=== PATIENT | male | born 1990 | race Caucasian/White ===

== ENCOUNTER 2017-07-22 06:58 | Emergency (ER) | payer SELFPAY ==
[2017-07-22 07:09] VITALS: BP 139/83
[2017-07-22] MEDS ORDERED: Ondansetron 4 MG/2 ML SDV IVPUSH ONE (07:12)
--- NOTE | 2017-07-22 07:16 | EDM.PDOC ---
ED HPI GENERAL MEDICAL PROBLEM - General Chief Complaint: Behavioral/Psych Stated Complaint: MEDICATION OD Time Seen by Provider: 07/22/17 07:16 Source of Information: Reports: Patient - History of Present Illness INITIAL COMMENTS - FREE TEXT/NARRATIVE: HISTORY AND PHYSICAL: History of present illness: [Patient presents with suicide attempt last night He had locked himself in the garage between 11 PM and 1 AM with a vehicle running, 9 hours later carboxyhemoglobin level is 13, at approximately 1 AM he took a mix of aspirin and Tylenol approximately 30 tablets levels are nontoxic at this time 9 hours later Patient is in no distress, denies history of depression or chronic medications illness or disease denies smoking alcohol or illicit drug use No prior suicidal ideation or attempt No fever nausea vomiting chills sweats no chest pain shortness breath headache dizziness palpitation no bowel or urine symptoms] Review of systems: As per history of present illness and below otherwise all systems reviewed and negative. Past medical history: As per history of present illness and as reviewed below otherwise noncontributory. Surgical history: As per history of present illness and as reviewed below otherwise noncontributory. Social history: No reported history of drug or alcohol abuse. Family history: As per history of present illness and as reviewed below otherwise noncontributory. Physical exam: HEENT: Atraumatic, normocephalic, pupils reactive, negative for conjunctival pallor or scleral icterus, mucous membranes moist, throat clear, neck supple, nontender, trachea midline. Lungs: Clear to auscultation, breath sounds equal bilaterally, chest nontender. Heart: S1S2, regular, negative for clicks, rubs, or JVD. Abdomen: Soft, nondistended, nontender. Negative for masses or hepatosplenomegaly. Negative for costovertebral tenderness. Pelvis: Stable nontender. Genitourinary: Deferred. Rectal: Deferred. Extremities: Atraumatic, negative for cords or calf pain. Neurovascular unremarkable. Neuro: Awake, alert, oriented. Cranial nerves II through XII unremarkable. Cerebellum unremarkable. Motor and sensory unremarkable throughout. Exam nonfocal. Diagnostics: [CBC CMP UA drug screen aspirin Tylenol and alcohol levels EKG ] Therapeutics: [Oxygen] Impression: [Suicide attempt] Definitive disposition and diagnosis as appropriate pending reevaluation and review of above. Headache Pain Score (Numeric/FACES): 7 - Related Data Allergies Allergy/AdvReac Type Severity Reaction Status Date / Time No Known Allergies Allergy Verified 07/22/17 07:09 Home Meds: Home Meds . [No Known Home Meds] 03/26/15 [History] Past Medical History - Past Health History Medical/Surgical History: Denies Medical/Surgical History Social & Family History - Family History Family Medical History: Noncontributory ED ROS GENERAL - Review of Systems Review Of Systems: See Below ED EXAM, GENERAL - Physical Exam Exam: See Below Course - Vital Signs Last Recorded V/S: Last Vital Signs Temp 98.6 F 07/22/17 07:06 Pulse 99 07/22/17 07:06 Resp 18 07/22/17 07:06 BP 139/83 07/22/17 07:06 Pulse Ox 96 07/22/17 07:06 - Orders/Labs/Meds Orders: Active Orders 24 hr Category Date Time Status EKG Documentation Completion [RC] STAT Care 07/22/17 07:05 Active DRUG SCREEN, URINE [URCHEM] Stat Lab 07/22/17 07:05 Ordered INR,PT,PROTHROMBIN TIME [COAG] Stat Lab 07/22/17 08:29 Ordered UA W/MICROSCOPIC [URIN] Stat Lab 07/22/17 07:05 Ordered Labs: Laboratory Tests 07/22/17 07/22/17 07/22/17 Range/Units 07:16 07:16 07:16 WBC 12.43 H (4.0-11.0) K/uL RBC 5.45 (4.50-5.90) M/uL Hgb 16.8 (13.0-17.0) g/dL Hct 45.5 (38.0-50.0) % MCV 83.5 (80.0-98.0) fL MCH 30.8 (27.0-32.0) pg MCHC 36.9 (31.0-37.0) g/dL RDW Std Deviation 39.4 (28.0-62.0) fl RDW Coeff of Ariella 13 (11.0-15.0) % Plt Count 252 (150-400) K/uL MPV 10.40 (7.40-12.00) fL Neut % (Auto) 82.5 H (48.0-80.0) % Lymph % (Auto) 11.1 L (16.0-40.0) % [place] % (Auto) 6.2 (0.0-15.0) % Eos % (Auto) 0.0 (0.0-7.0) % Baso % (Auto) 0.2 (0.0-1.5) % Neut # (Auto) 10.3 H (1.4-5.7) K/uL Lymph # (Auto) 1.4 (0.6-2.4) K/uL [place] # (Auto) 0.8 (0.0-0.8) K/uL Eos # (Auto) 0.0 (0.0-0.7) K/uL Baso # (Auto) 0.0 (0.0-0.1) K/uL Nucleated RBC % 0.0 /100WBC Nucleated RBCs # 0 K/uL ABG Carboxyhemoglobin 13.1 (0-15) % Sodium 141 (136-148) mmol/L Potassium 3.7 (3.5-5.1) mmol/L Chloride 103 (98-107) mmol/L Carbon Dioxide 22.5 (21.0-32.0) mmol/L BUN 13 (7.0-18.0) mg/dL Creatinine 1.4 H (0.8-1.3) mg/dL Est Cr Clr Drug Dosing 81.84 mL/min Estimated GFR (MDRD) > 60.0 ml/min Glucose 147 H (74-106) mg/dL Calcium 9.4 (8.5-10.1) mg/dL Magnesium 1.9 (1.8-2.4) mg/dL Total Bilirubin 0.4 (0.2-1.0) mg/dL AST 22 (15-37) IU/L ALT 24 (14-63) IU/L Alkaline Phosphatase 65 (46-116) U/L Total Protein 8.2 (6.4-8.2) g/dL Albumin 4.5 (3.4-5.0) g/dL Globulin 3.7 H (2.0-3.5) g/dL Albumin/Globulin Ratio 1.2 L (1.3-2.8) TSH 3rd Generation 1.41 (0.36-3.74) uIU/mL Salicylates 24.9 H (0-20) mg/dL Acetaminophen 21.8 ug/mL Ethyl Alcohol < 3.0 mg/dL Meds: Medications Discontinued Medications Generic Name Dose Route Start Last Admin Trade Name Ki PRN Reason Stop Dose Admin Ondansetron HCl 8 mg 07/22/17 07:12 07/22/17 07:21 Zofran IVPUSH 07/22/17 07:13 8 mg ONETIME ONE Administration Departure - Departure Time of Disposition: 08:45 Disposition: DC/Tfer to Other 70 Condition: Fair Clinical Impression: Suicide attempt - Discharge Information Referrals: Ernie Meng MD [Primary Care Provider] - Forms: ED Department Discharge - My Orders Last 24 Hours: My Active Orders 07/22/17 08:29 INR,PT,PROTHROMBIN TIME [COAG] Stat - Assessment/Plan Last 24 Hours: My Active Orders 07/22/17 08:29 INR,PT,PROTHROMBIN TIME [COAG] Stat
[2017-07-22 08:03] LABS: CHLORIDE,CL 103 mmol/L (98-107); SODIUM,NA 141 mmol/L (136-148)
[2017-07-22 08:05] LABS: ACETAMINOPHEN 21.8 ug/mL
== END 2017-07-22 10:45 | disposition other institution (70) ==
LOC: MW.ED 06:58
DX: T39.1X2A Poisoning by 4-Aminophenol derivatives, intentional self-harm, initial encounter (principal); T39.012A Poisoning by aspirin, intentional self-harm, initial encounter; R51 Headache
CPT/HCPCS: 36415; 80053; 80305; 81001; 82375; 83735; 84443; 85025; 85610; 93005; 96374; 99285; G0480; J2405; 99283

== ENCOUNTER 2018-09-28 15:24 | Emergency (ER) | payer SELFPAY ==
[2018-09-28] MEDS ORDERED: Ondansetron 4 MG/2 ML SDV ONE (15:35)
[2018-09-28] MEDS ORDERED: Sodium Chloride 0.9% 1,000 ML IV ONE (15:38)
[2018-09-28] MEDS ORDERED: Ondansetron 4 MG/2 ML SDV IVPUSH ONE (15:38)
--- NOTE | 2018-09-28 15:41 | EDM.PDOC ---
ED HPI GENERAL MEDICAL PROBLEM - General Chief Complaint: Drug or Alcohol Abuse Stated Complaint: EMS ARRIVAL Time Seen by Provider: 09/28/18 15:30 - History of Present Illness INITIAL COMMENTS - FREE TEXT/NARRATIVE: HISTORY AND PHYSICAL: History of present illness: Patient 28-year-old male history of depression presents status post suicide attempt in the form of overdose he took an unknown amount of tramadol Cymbalta and used alcohol with this he had represented this to paramedics who arrived after they were called by the patient's roommate for this event. Review of systems: As per history of present illness and below otherwise all systems reviewed and negative. Past medical history: As per history of present illness and as reviewed below otherwise noncontributory. Surgical history: As per history of present illness and as reviewed below otherwise noncontributory. Social history: No reported history of drug or alcohol abuse. Family history: As per history of present illness and as reviewed below otherwise noncontributory. Physical exam: HEENT: Atraumatic, normocephalic, pupils reactive, negative for conjunctival pallor or scleral icterus, mucous membranes moist, throat clear, neck supple, nontender, trachea midline. Lungs: Clear to auscultation, breath sounds equal bilaterally, chest nontender. Heart: S1S2, regular, negative for clicks, rubs, or JVD. Abdomen: Soft, nondistended, nontender. Negative for masses or hepatosplenomegaly. Negative for costovertebral tenderness. Pelvis: Stable nontender. Genitourinary: Deferred. Rectal: Deferred. Extremities: Atraumatic, negative for cords or calf pain. Neurovascular unremarkable. Neuro: Patient somnolent he does follow commands and move all extremities he is protecting his airway is limited grossly nonfocal exam Diagnostics: Psychiatric panel Therapeutics: IV O2 monitor Impression: #1 depressive episode with suicide attempt #2 poly-overdose Definitive disposition and diagnosis as appropriate pending reevaluation and review of above. - Related Data Allergies Allergy/AdvReac Type Severity Reaction Status Date / Time No Known Allergies Allergy Verified 09/28/18 15:36 Home Meds: Home Meds DULoxetine [Cymbalta] 30 mg PO DAILY 09/28/18 [History] Past Medical History - Past Health History Medical/Surgical History: Denies Medical/Surgical History Social & Family History - Family History Family Medical History: Noncontributory - Caffeine Use Caffeine Use: Reports: None ED ROS GENERAL - Review of Systems Review Of Systems: ROS reveals no pertinent complaints other than HPI. ED EXAM, GENERAL - Physical Exam Exam: See Below (See dictation) Course - Vital Signs Last Recorded V/S: Last Vital Signs Temp 36.1 C 09/28/18 15:34 Pulse 91 09/28/18 15:34 Resp 20 09/28/18 15:34 BP 119/81 09/28/18 15:34 Pulse Ox 97 09/28/18 15:34 - Orders/Labs/Meds Orders: Active Orders 24 hr Category Date Time Status EKG Documentation Completion [RC] STAT Care 09/28/18 15:33 Active Chest 1V Frontal [CR] Stat Exams 09/28/18 15:33 Ordered Sodium Chloride 0.9% [Normal Saline] 1,000 ml Med 09/28/18 15:38 Active IV .Bolus Medication Orders Sodium Chloride (Normal Saline) 1,000 mls @ 999 mls/hr IV .Bolus ONE Stop: 09/28/18 16:38 Last Admin: 09/28/18 16:05 Dose: 999 mls/hr Labs: Laboratory Tests 09/28/18 09/28/18 09/28/18 Range/Units 15:30 15:30 15:40 WBC 5.47 (4.0-11.0) K/uL RBC 5.36 (4.50-5.90) M/uL Hgb 16.2 (13.0-17.0) g/dL Hct 45.8 (38.0-50.0) % MCV 85.4 (80.0-98.0) fL MCH 30.2 (27.0-32.0) pg MCHC 35.4 (31.0-37.0) g/dL RDW Std Deviation 40.4 (28.0-62.0) fl RDW Coeff of Ariella 13 (11.0-15.0) % Plt Count 225 (150-400) K/uL MPV 10.60 (7.40-12.00) fL Neut % (Auto) 51.8 (48.0-80.0) % Lymph % (Auto) 36.6 (16.0-40.0) % [place] % (Auto) 9.3 (0.0-15.0) % Eos % (Auto) 1.6 (0.0-7.0) % Baso % (Auto) 0.7 (0.0-1.5) % Neut # (Auto) 2.8 (1.4-5.7) K/uL Lymph # (Auto) 2.0 (0.6-2.4) K/uL [place] # (Auto) 0.5 (0.0-0.8) K/uL Eos # (Auto) 0.1 (0.0-0.7) K/uL Baso # (Auto) 0.0 (0.0-0.1) K/uL Nucleated RBC % 0.0 /100WBC Nucleated RBCs # 0 K/uL Sodium 143 (136-148) mmol/L Potassium 3.8 (3.5-5.1) mmol/L Chloride 108 H (98-107) mmol/L Carbon Dioxide 25.4 (21.0-32.0) mmol/L BUN 9 (7.0-18.0) mg/dL Creatinine 1.1 (0.8-1.3) mg/dL Est Cr Clr Drug Dosing 108.76 mL/min Estimated GFR (MDRD) > 60.0 ml/min Glucose 93 (74-106) mg/dL Calcium 8.7 (8.5-10.1) mg/dL Total Bilirubin 0.8 (0.2-1.0) mg/dL AST 22 (15-37) IU/L ALT 32 (14-63) IU/L Alkaline Phosphatase 63 (46-116) U/L Total Protein 7.3 (6.4-8.2) g/dL Albumin 3.7 (3.4-5.0) g/dL Globulin 3.6 (2.6-4.0) g/dL Albumin/Globulin Ratio 1.0 (0.9-1.6) TSH 3rd Generation 0.81 (0.36-3.74) uIU/mL Urine Color YELLOW Urine Appearance CLEAR Urine pH 6.0 (5.0-8.0) Ur Specific [place] 1.015 (1.001-1.035) Urine Protein NEGATIVE (NEGATIVE) mg/dL Urine Glucose (UA) NEGATIVE (NEGATIVE) mg/dL Urine Ketones NEGATIVE (NEGATIVE) mg/dL Urine Occult Blood NEGATIVE (NEGATIVE) Urine Nitrite NEGATIVE (NEGATIVE) Urine Bilirubin NEGATIVE (NEGATIVE) Urine Urobilinogen 0.2 (<2.0) EU/dL Ur Leukocyte Esterase NEGATIVE (NEGATIVE) Salicylates <0.2 (0-20) mg/dL Urine Opiates Screen (NEGATIVE) Ur Oxycodone Screen (NEGATIVE) Urine Methadone Screen (NEGATIVE) Acetaminophen <2.0 ug/mL Ur Barbiturates Screen (NEGATIVE) Ur Phencyclidine Scrn (NEGATIVE) Ur Amphetamine Screen (NEGATIVE) U Methamphetamines Scrn (NEGATIVE) U Benzodiazepines Scrn (NEGATIVE) U Cocaine Metab Screen (NEGATIVE) U Marijuana (THC) Screen (NEGATIVE) Ethyl Alcohol 3 mg/dL 09/28/18 Range/Units 15:40 WBC (4.0-11.0) K/uL RBC (4.50-5.90) M/uL Hgb (13.0-17.0) g/dL Hct (38.0-50.0) % MCV (80.0-98.0) fL MCH (27.0-32.0) pg MCHC (31.0-37.0) g/dL RDW Std Deviation (28.0-62.0) fl RDW Coeff of Ariella (11.0-15.0) % Plt Count (150-400) K/uL MPV (7.40-12.00) fL Neut % (Auto) (48.0-80.0) % Lymph % (Auto) (16.0-40.0) % [place] % (Auto) (0.0-15.0) % Eos % (Auto) (0.0-7.0) % Baso % (Auto) (0.0-1.5) % Neut # (Auto) (1.4-5.7) K/uL Lymph # (Auto) (0.6-2.4) K/uL [place] # (Auto) (0.0-0.8) K/uL Eos # (Auto) (0.0-0.7) K/uL Baso # (Auto) (0.0-0.1) K/uL Nucleated RBC % /100WBC Nucleated RBCs # K/uL Sodium (136-148) mmol/L Potassium (3.5-5.1) mmol/L Chloride (98-107) mmol/L Carbon Dioxide (21.0-32.0) mmol/L BUN (7.0-18.0) mg/dL Creatinine (0.8-1.3) mg/dL Est Cr Clr Drug Dosing mL/min Estimated GFR (MDRD) ml/min Glucose (74-106) mg/dL Calcium (8.5-10.1) mg/dL Total Bilirubin (0.2-1.0) mg/dL AST (15-37) IU/L ALT (14-63) IU/L Alkaline Phosphatase (46-116) U/L Total Protein (6.4-8.2) g/dL Albumin (3.4-5.0) g/dL Globulin (2.6-4.0) g/dL Albumin/Globulin Ratio (0.9-1.6) TSH 3rd Generation (0.36-3.74) uIU/mL Urine Color Urine Appearance Urine pH (5.0-8.0) Ur Specific [place] (1.001-1.035) Urine Protein (NEGATIVE) mg/dL Urine Glucose (UA) (NEGATIVE) mg/dL Urine Ketones (NEGATIVE) mg/dL Urine Occult Blood (NEGATIVE) Urine Nitrite (NEGATIVE) Urine Bilirubin (NEGATIVE) Urine Urobilinogen (<2.0) EU/dL Ur Leukocyte Esterase (NEGATIVE) Salicylates (0-20) mg/dL Urine Opiates Screen NEGATIVE (NEGATIVE) Ur Oxycodone Screen NEGATIVE (NEGATIVE) Urine Methadone Screen NEGATIVE (NEGATIVE) Acetaminophen ug/mL Ur Barbiturates Screen NEGATIVE (NEGATIVE) Ur Phencyclidine Scrn NEGATIVE (NEGATIVE) Ur Amphetamine Screen NEGATIVE (NEGATIVE) U Methamphetamines Scrn NEGATIVE (NEGATIVE) U Benzodiazepines Scrn NEGATIVE (NEGATIVE) U Cocaine Metab Screen NEGATIVE (NEGATIVE) U Marijuana (THC) Screen NEGATIVE (NEGATIVE) Ethyl Alcohol mg/dL Meds: Medications Generic Name Dose Route Start Last Admin Trade Name Freq PRN Reason Stop Dose Admin Sodium Chloride 1,000 mls @ 999 mls/hr 09/28/18 15:38 09/28/18 16:05 Normal Saline IV 09/28/18 16:38 999 mls/hr .Bolus ONE Administration Discontinued Medications Generic Name Dose Route Start Last Admin Trade Name Freq PRN Reason Stop Dose Admin Ondansetron HCl Confirm 09/28/18 15:35 09/28/18 15:55 Zofran Administered 09/28/18 15:36 Not Given Dose 4 mg .ROUTE .STK-MED ONE Ondansetron HCl 4 mg 09/28/18 15:38 09/28/18 16:05 Zofran IVPUSH 09/28/18 15:39 4 mg ONETIME ONE Administration Departure - Departure Time of Disposition: 16:17 Disposition: DC/Tfer to Acute Hospital 02 Condition: Good Clinical Impression: Overdose, Suicide attempt - Discharge Information Referrals: PCP,Unknown [Primary Care Provider] - Forms: ED Department Discharge - My Orders Last 24 Hours: My Active Orders 09/28/18 15:33 EKG Documentation Completion [RC] STAT Chest 1V Frontal [CR] Stat 09/28/18 15:38 Sodium Chloride 0.9% [Normal Saline] 1,000 ml IV .Bolus - Assessment/Plan Last 24 Hours: My Active Orders 09/28/18 15:33 EKG Documentation Completion [RC] STAT Chest 1V Frontal [CR] Stat 09/28/18 15:38 Sodium Chloride 0.9% [Normal Saline] 1,000 ml IV .Bolus
[2018-09-28 16:02] LABS: ACETAMINOPHEN <2.0 ug/mL
[2018-09-28 16:11] LABS: CHLORIDE,CL 108 mmol/L (98-107); SODIUM,NA 143 mmol/L (136-148)
--- NOTE | 2018-09-28 16:32 | CR ---
Indication: Overdose. Technique: A single AP portable view of the chest was obtained. Comparison: None Findings: Heart is normal in size. The lungs are clear. No infiltrate, pleural effusion, or pneumothorax is identified. Impression: No acute cardiopulmonary process. Dictated by oTnie Strauss MD @ Sep 28 2018 4:31PM Signed by Dr. Tonie Strauss @ Sep 28 2018 4:32PM
[2018-09-28 18:13] VITALS: BP 143/85
== END 2018-09-28 21:15 ==
LOC: MW.ED 15:24
DX: T40.4X2A Poisoning by other synthetic narcotics, intentional self-harm, initial encounter (principal); T43.212A Poisoning by selective serotonin and norepinephrine reuptake inhibitors, intentional self-harm, initial encounter; F32.9 Major depressive disorder, single episode, unspecified; Z79.899 Other long term (current) drug therapy
CPT/HCPCS: 36415; 71045; 80053; 80305; 81003; 84443; 85025; 93005; 96361; 96374; 99285; G0480; J2405; J7040; 99284

== ENCOUNTER 2018-10-19 09:43 | Emergency (ER) | payer BC ==
--- NOTE | 2018-10-19 10:09 | EDM.PDOC ---
ED HPI GENERAL MEDICAL PROBLEM - General Stated Complaint: PAIN IN LEFT RIBS Time Seen by Provider: 10/19/18 10:07 Source of Information: Reports: Patient History Limitations: Reports: No Limitations - History of Present Illness INITIAL COMMENTS - FREE TEXT/NARRATIVE: HISTORY AND PHYSICAL: History of present illness: Patient is a 28-year-old male who presents to the emergency room with complaints of left anterior chest pain. Pain is aggravated with physical activity, deep breathing or coughing. He states two days ago he was getting up out of the recliner when he had a sudden sharp pain to the left anterior chest. Since that time he has sharp stabbing pain with movement or coughing. He is concerned he has a rib injury or possible fracture. He denies any falls or trauma. He denies any fever, chills, cough or respiratory symptoms. Review of systems: As per history of present illness and below otherwise all systems reviewed and negative. Past medical history: As per history of present illness and as reviewed below otherwise noncontributory. Surgical history: As per history of present illness and as reviewed below otherwise noncontributory. Social history: See social history for further information Family history: As per history of present illness and as reviewed below otherwise noncontributory. Physical exam: General: Developed and well-nourished 28-year-old male. Alert and oriented. Nontoxic appearing and in no acute distress. HEENT: Atraumatic, normocephalic, pupils equal and reactive bilaterally, negative for conjunctival pallor or scleral icterus, mucous membranes moist, trachea midline. No drooling or trismus noted. No meningeal signs. No hot potato voice noted. Lungs: Clear to auscultation, breath sounds equal bilaterally, chest nontender. Heart: S1S2, regular rate and rhythm without overt murmur Abdomen: Soft, nondistended, nontender. Negative for masses or hepatosplenomegaly. Negative for costovertebral tenderness. Skin: Intact, warm, dry. No lesions or rashes noted. Extremities: Atraumatic, moves all extremities per self without difficulty or deficits, negative for cords or calf pain. Neurovascular unremarkable. Neuro: Awake, alert, oriented. Cranial nerves II through XII unremarkable. Cerebellum unremarkable. Motor and sensory unremarkable throughout. Exam nonfocal. Notes: When the patient arrived there was a multiple victim trauma code in progress. Patient was aware of this. I did offer him an x-ray, although he is aware it would take longer than usual to get his imaging completed. His lung sounds are clear oxygen saturation is above 97%, afebrile. I do not believe that he has any respiratory illness associated with the rib pain. We will treat him with supportive care measures/pain medications. We discussed signs and symptoms that would prompt him to return to the emergency room. Supportive care measures were reviewed and discussed. Voices understanding and is agreeable to plan of care. Denies any further questions or concerns at this time. Diagnostics: Declines Therapeutics: None Prescription: Tramadol No. 15 Impression: Left rib pain Plan: 1. Take long deep breaths several times per day while gardening the painful side of the ribs. 2. Alternate Tylenol and ibuprofen as needed. Tramadol for moderate to severe pain. 3. Follow-up with your primary care provider as we discussed. Return to the ED as needed and as discussed. Definitive disposition and diagnosis as appropriate pending reevaluation and review of above. - Related Data Allergies Allergy/AdvReac Type Severity Reaction Status Date / Time No Known Allergies Allergy Verified 09/28/18 15:36 Home Meds: Home Meds DULoxetine [Cymbalta] 30 mg PO DAILY 09/28/18 [History] Past Medical History - Past Health History Medical/Surgical History: Denies Medical/Surgical History Social & Family History - Family History Family Medical History: Noncontributory - Caffeine Use Caffeine Use: Reports: None ED ROS GENERAL - Review of Systems Review Of Systems: ROS reveals no pertinent complaints other than HPI. ED EXAM, GENERAL - Physical Exam Exam: See Below (See dictation) Departure - Departure Time of Disposition: 10:08 Disposition: Home, Self-Care 01 Clinical Impression: Rib pain on left side - Discharge Information Instructions: Nonspecific Chest Pain, [id number] Referrals: PCP,None [Primary Care Provider] - Additional Instructions: The following information is given to patients seen in the emergency department who are being discharged to home. This information is to outline your options for follow-up care. We provide all patients seen in our emergency department with a follow-up referral. The need for follow-up, as well as the timing and circumstances, are variable depending upon the specifics of your emergency department visit. If you don't have a primary care physician on staff, we will provide you with a referral. We always advise you to contact your personal physician following an emergency department visit to inform them of the circumstance of the visit and for follow-up with them and/or the need for any referrals to a consulting specialist. The emergency department will also refer you to a specialist when appropriate. This referral assures that you have the opportunity for follow-up care with a specialist. All of these measure are taken in an effort to provide you with optimal care, which includes your follow-up. Under all circumstances we always encourage you to contact your private physician who remains a resource for coordinating your care. When calling for follow-up care, please make the office aware that this follow-up is from your recent emergency room visit. If for any reason you are refused follow-up, please contact the [facility] at and asked to speak to the emergency department charge nurse. [facility] [address] [place], [place] [id number] [place] [address] 1. Take long deep breaths several times per day while gardening the painful side of the ribs. 2. Alternate Tylenol and ibuprofen as needed. Tramadol for moderate to severe pain. 3. Follow-up with your primary care provider as we discussed. Return to the ED as needed and as discussed.
[2018-10-19 17:28] VITALS: BP 132/76
== END 2018-10-19 10:12 | disposition home or self-care (01) ==
LOC: MW.ED 09:43
DX: R07.81 Pleurodynia (principal); Z79.899 Other long term (current) drug therapy
CPT/HCPCS: 99283

== ENCOUNTER 2019-12-05 20:43 | Emergency (ER) | payer BC, OTHER ==
[2019-12-05] MEDS ORDERED: Rocuronium 100 MG/10 ML MDV IV ONE ×2 (20:44)
[2019-12-05] MEDS ORDERED: Sodium Chloride 0.9% 1,000 ML IV ONE ×2 (20:49→21:05)
[2019-12-05] MEDS ORDERED: Succinylcholine 200 MG/10 ML MDV IV ONE (20:49)
[2019-12-05] MEDS ORDERED: Midazolam 1 MG/ML 2 ML SDV IVPUSH ONE ×2 (20:49→21:54)
[2019-12-05] MEDS ORDERED: Morphine 4 MG/ML Syringe IVPUSH ONE (20:49)
[2019-12-05] MEDS ORDERED: Etomidate 2 MG/ML 20 ML SDV IVPUSH ONE (20:49)
--- NOTE | 2019-12-05 20:57 | EDM.PDOC ---
ED HPI GENERAL MEDICAL PROBLEM - General Stated Complaint: OVERDOZE Time Seen by Provider: 12/05/19 20:45 Source of Information: Reports: EMS History Limitations: Reports: Altered Mental Status - History of Present Illness INITIAL COMMENTS - FREE TEXT/NARRATIVE: 29-year-old male with history of anxiety, bipolar disorder, suicidal overdose was brought in by ambulance after an unwitnessed overdose. EMS received a call from the [place] emergency department about 1 hour prior to arrival for overdosing on unknown quantity of doxepin 50 mg, Abilify 15 mg, hydroxyzine 10 mg. History and review of system is limited secondary to altered mental status. Past medical history: No additional pertinent history Past Surgical history: No additional pertinent history Social history: No additional pertinent history Family history: No additional pertinent history PHYSICAL EXAM General: lethargic HEENT: dry mucous membrane, pupils 2mm bilateral Neck: supple, no meningismus, no Kernig or Brudzinski Cardiac: S1S2 tachycardia Respiratory: CTAB, bradypneic, no crackles or rales, no wheezing Abdomen: Soft, nontender, no rebound or guarding, nondistended, no pulsatile mass. Back: nontender Musculoskeletal: NO tremors no clonus, no ridigity, NVI distally, no deformity Neuro: lethargic - Related Data Allergies Allergy/AdvReac Type Severity Reaction Status Date / Time No Known Allergies Allergy Verified 12/05/19 21:03 Home Meds: Home Meds DULoxetine [Cymbalta] 30 mg PO DAILY 09/28/18 [History] Past Medical History - Past Health History Medical/Surgical History: Denies Medical/Surgical History Social & Family History - Family History Family Medical History: Noncontributory - Caffeine Use Caffeine Use: Reports: None ED ROS GENERAL - Review of Systems Review Of Systems: Unable To Obtain Reason Not Obtained: Altered mental status ED EXAM, GENERAL - Physical Exam Exam: See Below (see dictation) ED GENERAL MEDICAL PROCEDURES - Endotracheal Intubation Time of Intubation: 20:46 ET Intubation Indication: Respiratory Failure, Airway Protection Preparation: Suction, Balloon Tested, BVM Set Up, Difficult Airway Equip Airway Assessment: Obese Pre-Oxygenation: Assisted with BVM Anesthesia Meds: Etomidate, Succinylcholine Placement: Orotracheal, Uncomplicated Placement Cords Visualized: Yes, Grade 1 ETT Size In mm: 7.5 Number of Attempts: 1 Confirmed By: CO2 Indicator, Bilateral Breath Sounds, Chest Xray Tube Secured By: By Provider Endotracheal Intubation Comment: RSI / INTUBATION: Indication: Respiratory failure. Oral airway was completed prior to intubation. The patient was placed in a flat position. Continuous cardiac monitoring was performed. Crash cart was in the room as well as respiratory therapist to help with airway management. RSI was achieved using Etomidate 20mg and succinylcholine 120mg. The patient was easily ventilated using an ambu bag. A MAC 4 BLADE was used and inserted into the oropharynx at which time there was a Grade 1 view of the vocal cords. A 7.5-hebrew ET was inserted and visualized going through the vocal cords. The stylette was removed. Colorimetric change was visualized on the CO2 meter. Breath sounds were heard in both lung acosta equally. Good chest rise with ventilation along with misting in the ET tube was seen. The endotracheal tube was placed at 23 cm, measured at the lip. Portable chest x-ray was obtained to confirm tube placement. There were no complications. Oxygenation post intubation was noted to be 100%. Time spent: 10 minutes #1 Interpretation EKG Interpretation Comments: Heart rate = 101 bpm, sinus tachycardia, UT 168ms, QRS 114, QTc 501ms, no STEMI. EKG and rhythm strip interpreted by me at 2101 #2 Interpretation EKG Interpretation Comments: Heart rate = 96 bpm, normal sinus rhythm, UT 186, QRS 104, QTc 539ms, no STEMI. EKG and rhythm strip interpreted by me at 2138 Course - Vital Signs Last Recorded V/S: Last Vital Signs Temp 97 F 12/05/19 20:43 Pulse Resp 6 L 12/05/19 20:43 BP 170/90 H 12/05/19 20:43 Pulse Ox 98 12/05/19 20:43 - Orders/Labs/Meds Orders: Active Orders 24 hr Category Date Time Status EKG Documentation Completion [RC] STAT Care 12/05/19 20:51 Active Gastrointestinal Tube Mgmt [RC] ASDIRECTED Care 12/05/19 20:49 Active Gastrointestinal Tube Mgmt [RC] ASDIRECTED Care 12/05/19 20:50 Active Insert Urinary Catheter [OM.PC] Q24H Care 12/05/19 21:00 Ordered RASS Sedation Scale [RC] ASDIRECTED Care 12/05/19 21:21 Active RT Airway Intubation [RC] ASDIRECTED Care 12/05/19 20:49 Active Urinary Catheter Assessment [RC] ASDIRECTED Care 12/05/19 20:50 Active Midazolam [Versed 5 MG/ML] 50 mg Med 12/05/19 22:15 Active Sodium Chloride 0.9% [Normal Saline] 40 ml IV TITRATE propofoL [Diprivan 100 ML] 100 ml Med 12/05/19 21:30 Active IV TITRATE Desired Level of Sedation (RASS) [AST] Click to Edit Oth 12/05/19 21:21 Ordered Nasogastric Orogastric Tube Insertion [OM.PC] Stat Oth 12/05/19 20:49 Ordered Medication Orders Propofol (Diprivan 100 Ml) 100 mls @ 3 mls/hr IV TITRATE SERA; Protocol Midazolam HCl 50 mg/ Sodium (Chloride) 50 mls @ 0.5 mls/hr IV TITRATE SERA; Protocol Labs: Laboratory Tests 12/05/19 12/05/19 12/05/19 Range/Units 20:45 20:45 20:46 WBC 12.97 H (4.0-11.0) K/uL RBC 4.43 L (4.50-5.90) M/uL Hgb 13.1 (13.0-17.0) g/dL Hct 38.3 (38.0-50.0) % MCV 86.5 (80.0-98.0) fL MCH 29.6 (27.0-32.0) pg MCHC 34.2 (31.0-37.0) g/dL RDW Std Deviation 40.3 (28.0-62.0) fl RDW Coeff of Ariella 13 (11.0-15.0) % Plt Count 225 (150-400) K/uL MPV 10.80 (7.40-12.00) fL Neut % (Auto) 82.1 H (48.0-80.0) % Lymph % (Auto) 11.6 L (16.0-40.0) % [place] % (Auto) 5.9 (0.0-15.0) % Eos % (Auto) 0.2 (0.0-7.0) % Baso % (Auto) 0.2 (0.0-1.5) % Neut # (Auto) 10.6 H (1.4-5.7) K/uL Lymph # (Auto) 1.5 (0.6-2.4) K/uL [place] # (Auto) 0.8 (0.0-0.8) K/uL Eos # (Auto) 0.0 (0.0-0.7) K/uL Baso # (Auto) 0.0 (0.0-0.1) K/uL Nucleated RBC % 0.0 /100WBC Nucleated RBCs # 0 K/uL Sodium 140 (136-148) mmol/L Potassium 3.9 (3.5-5.1) mmol/L Chloride 103 (98-107) mmol/L Carbon Dioxide 24.6 (21.0-32.0) mmol/L BUN 12 (7.0-18.0) mg/dL Creatinine 1.0 (0.8-1.3) mg/dL Est Cr Clr Drug Dosing TNP Estimated GFR (MDRD) > 60.0 ml/min Glucose 167 H (74-106) mg/dL Calcium 9.2 (8.5-10.1) mg/dL Magnesium 1.6 L (1.8-2.4) mg/dL Total Bilirubin 0.3 (0.2-1.0) mg/dL AST 24 (15-37) IU/L ALT 24 (14-63) IU/L Alkaline Phosphatase 44 L (46-116) U/L Total Protein 7.1 (6.4-8.2) g/dL Albumin 3.7 (3.4-5.0) g/dL Globulin 3.4 (2.6-4.0) g/dL Albumin/Globulin Ratio 1.1 (0.9-1.6) TSH 3rd Generation 1.39 (0.36-3.74) uIU/mL Urine Color Urine Appearance Urine pH (5.0-8.0) Ur Specific Tappen (1.001-1.035) Urine Protein (NEGATIVE) mg/dL Urine Glucose (UA) (NEGATIVE) mg/dL Urine Ketones (NEGATIVE) mg/dL Urine Occult Blood (NEGATIVE) Urine Nitrite (NEGATIVE) Urine Bilirubin (NEGATIVE) Urine Urobilinogen (<2.0) EU/dL Ur Leukocyte Esterase (NEGATIVE) Urine RBC (0-2/HPF) Urine WBC (0-5/HPF) Ur Epithelial Cells (NONE-FEW) Urine Bacteria (NEGATIVE) Salicylates 0.7 (0-20) mg/dL Urine Opiates Screen (NEGATIVE) Ur Oxycodone Screen (NEGATIVE) Urine Methadone Screen (NEGATIVE) Acetaminophen <2.0 ug/mL Ur Barbiturates Screen (NEGATIVE) Ur Phencyclidine Scrn (NEGATIVE) Ur Amphetamine Screen (NEGATIVE) U Methamphetamines Scrn (NEGATIVE) U Benzodiazepines Scrn (NEGATIVE) U Cocaine Metab Screen (NEGATIVE) U Marijuana (THC) Screen (NEGATIVE) Ethyl Alcohol < 3.0 mg/dL SARS CoV-2 RNA Rapid RAUL NEGATIVE (NEGATIVE) 12/05/19 12/05/19 Range/Units 21:07 21:07 WBC (4.0-11.0) K/uL RBC (4.50-5.90) M/uL Hgb (13.0-17.0) g/dL Hct (38.0-50.0) % MCV (80.0-98.0) fL MCH (27.0-32.0) pg MCHC (31.0-37.0) g/dL RDW Std Deviation (28.0-62.0) fl RDW Coeff of Ariella (11.0-15.0) % Plt Count (150-400) K/uL MPV (7.40-12.00) fL Neut % (Auto) (48.0-80.0) % Lymph % (Auto) (16.0-40.0) % [place] % (Auto) (0.0-15.0) % Eos % (Auto) (0.0-7.0) % Baso % (Auto) (0.0-1.5) % Neut # (Auto) (1.4-5.7) K/uL Lymph # (Auto) (0.6-2.4) K/uL G[place]on # (Auto) (0.0-0.8) K/uL Eos # (Auto) (0.0-0.7) K/uL Baso # (Auto) (0.0-0.1) K/uL Nucleated RBC % /100WBC Nucleated RBCs # K/uL Sodium (136-148) mmol/L Potassium (3.5-5.1) mmol/L Chloride (98-107) mmol/L Carbon Dioxide (21.0-32.0) mmol/L BUN (7.0-18.0) mg/dL Creatinine (0.8-1.3) mg/dL Est Cr Clr Drug Dosing Estimated GFR (MDRD) ml/min Glucose (74-106) mg/dL Calcium (8.5-10.1) mg/dL Magnesium (1.8-2.4) mg/dL Total Bilirubin (0.2-1.0) mg/dL AST (15-37) IU/L ALT (14-63) IU/L Alkaline Phosphatase (46-116) U/L Total Protein (6.4-8.2) g/dL Albumin (3.4-5.0) g/dL Globulin (2.6-4.0) g/dL Albumin/Globulin Ratio (0.9-1.6) TSH 3rd Generation (0.36-3.74) uIU/mL Urine Color YELLOW Urine Appearance SLT CLOUDY Urine pH 5.5 (5.0-8.0) Ur Specific Tappen >= 1.030 (1.001-1.035) Urine Protein NEGATIVE (NEGATIVE) mg/dL Urine Glucose (UA) NEGATIVE (NEGATIVE) mg/dL Urine Ketones TRACE H (NEGATIVE) mg/dL Urine Occult Blood TRACE-INTACT H (NEGATIVE) Urine Nitrite NEGATIVE (NEGATIVE) Urine Bilirubin NEGATIVE (NEGATIVE) Urine Urobilinogen 0.2 (<2.0) EU/dL Ur Leukocyte Esterase NEGATIVE (NEGATIVE) Urine RBC 0-2 (0-2/HPF) Urine WBC 0-2 (0-5/HPF) Ur Epithelial Cells MODERATE (NONE-FEW) Urine Bacteria RARE (NEGATIVE) Salicylates (0-20) mg/dL Urine Opiates Screen NEGATIVE (NEGATIVE) Ur Oxycodone Screen NEGATIVE (NEGATIVE) Urine Methadone Screen NEGATIVE (NEGATIVE) Acetaminophen ug/mL Ur Barbiturates Screen NEGATIVE (NEGATIVE) Ur Phencyclidine Scrn NEGATIVE (NEGATIVE) Ur Amphetamine Screen NEGATIVE (NEGATIVE) U Methamphetamines Scrn NEGATIVE (NEGATIVE) U Benzodiazepines Scrn NEGATIVE (NEGATIVE) U Cocaine Metab Screen NEGATIVE (NEGATIVE) U Marijuana (THC) Screen NEGATIVE (NEGATIVE) Ethyl Alcohol mg/dL SARS CoV-2 RNA Rapid RAUL (NEGATIVE) Meds: Medications Generic Name Dose Route Start Last Admin Trade Name Ki PRN Reason Stop Dose Admin Propofol 100 mls @ 3 mls/hr 12/05/19 21:30 Diprivan 100 Ml IV TITRATE SERA Protocol 5 MCG/KG/MIN Midazolam HCl 50 mg/ Sodium 50 mls @ 0.5 mls/hr 12/05/19 22:15 Chloride IV TITRATE SERA Protocol 0.5 MG/HR Discontinued Medications Generic Name Dose Route Start Last Admin Trade Name Ki PRN Reason Stop Dose Admin Charcoal 50 gm 12/05/19 21:17 Ez Kitty Pellets [id number] 12/05/19 21:18 NOW STA Charcoal/Sorbitol Confirm 12/05/19 21:32 Actidose With Sorbitol Administered 12/05/19 21:33 Dose 50 gm .ROUTE .STK-MED ONE Etomidate 20 mg 12/05/19 20:49 Amidate IVPUSH 12/05/19 20:50 ONETIME ONE Sodium Chloride 1,000 mls @ 999 mls/hr 12/05/19 20:49 Normal Saline IV 12/05/19 21:49 .Bolus ONE Midazolam HCl 4 mg 12/05/19 20:49 Versed 1 Mg/Ml IVPUSH 12/05/19 20:50 ONETIME ONE Midazolam HCl Confirm 12/05/19 21:52 Versed 1 Mg/Ml Administered 12/05/19 21:53 Dose 4 mg .ROUTE .STK-MED ONE Midazolam HCl Confirm 12/05/19 22:02 Versed 1 Mg/Ml Administered 12/05/19 22:03 Dose 4 mg .ROUTE .STK-MED ONE Morphine Sulfate 4 mg 12/05/19 20:49 Morphine IVPUSH 12/05/19 20:50 ONETIME ONE Morphine Sulfate Confirm 12/05/19 21:52 Morphine Administered 12/05/19 21:53 Dose 4 mg .ROUTE .STK-MED ONE Succinylcholine Chloride 120 mg 12/05/19 20:49 Quelicin IV 12/05/19 20:50 ONETIME ONE - Re-Assessments/Exams Free Text/Narrative Re-Assessment/Exam: 10/23/20 20:54 Patient intubated without difficulty, see procedure note. He will require transfer to outside facility for the need of higher level of care not available at this facility, and the need for functional consultant services unavailable at this facility. Any emergency conditions have been stabilized to the ability of the ED prior to the transfer. Terri Guajardo is on diversion for critical care. Case was discussed with [facility] ICU Omer Nuñez, will accept transfer if COVID negative. 12/05/19 21:07 Case discussed with Beatriz at poison control, . Recommends activated charcoal now via OG tube. Recommend serial EKG [id number] for 6hr. If QRS increases > 120ms then bolus sodium Bicarb 1-2mEq, and if QRS narrows in response to the bicarb bolus, then start bicarb drip. if hypotensive on propofol, switch to versed drip or dilaudid drip. 12/05/19 22:02 I reassessed the patient, patient is hemodynamically stable on Versed drip now. Departure - Departure Time of Disposition: 21:14 Disposition: DC/Tfer to Other 70 Condition: Critical Clinical Impression: Overdose - Discharge Information *PRESCRIPTION DRUG MONITORING PROGRAM REVIEWED*: Not Applicable *COPY OF PRESCRIPTION DRUG MONITORING REPORT IN PATIENT NNAMDI: Not Applicable Instructions: Intentional Drug Overdose Referrals: PCP,None [Primary Care Provider] - Critical Care Note - Critical Care Note Total Time (mins): 130 Comments: CRITCAL CARE: The high probability of sudden, clinically significant deterioration in the patient's condition required the highest level of my preparedness to intervene urgently. The services I provided to this patient were to treat and/or prevent clinically significant deterioration. Services included the following: chart data review, reviewing nursing notes and/or old charts, documentation time, functional consultant collaboration regarding findings and treatment options, medication orders and management, direct patient care, vital sign assessments and ordering, interpreting and reviewing diagnostic studies/lab tests. Aggregate critical care time includes only time during which I was engaged in work directly related to the patient's care, as described above, whether at the bedside or elsewhere in the Emergency Department. It did not include time spent performing other reported procedures or the services of residents, students, nurses or physician assistants. Frequent interventions and/or frequent repeat evaluations were required as well as counseling and coordination of care regarding prognosis, treatments, and discussions with patient, staff and consultants. Critical Care (excluding other procedures): 130 minutes Sepsis Event Note (ED) - Focused Exam Vital Signs: Vital Signs Temp Resp BP Pulse Ox 12/05/19 20:43 97 F 6 L 170/90 H 98 - My Orders Last 24 Hours: My Active Orders 12/05/19 20:49 Gastrointestinal Tube Mgmt [RC] ASDIRECTED RT Airway Intubation [RC] ASDIRECTED Nasogastric Orogastric Tube Insertion [OM.PC] Stat 12/05/19 20:50 Gastrointestinal Tube Mgmt [RC] ASDIRECTED Urinary Catheter Assessment [RC] ASDIRECTED 12/05/19 20:51 EKG Documentation Completion [RC] STAT 12/05/19 21:00 Insert Urinary Catheter [OM.PC] Q24H 12/05/19 21:21 RASS Sedation Scale [RC] ASDIRECTED Desired Level of Sedation (RASS) [AST] Click to Edit 12/05/19 21:30 propofoL [Diprivan 100 ML] 100 ml IV TITRATE 12/05/19 22:15 Midazolam [Versed 5 MG/ML] 50 mg Sodium Chloride 0.9% [Normal Saline] 40 ml IV TITRATE - Assessment/Plan Last 24 Hours: My Active Orders 12/05/19 20:49 Gastrointestinal Tube Mgmt [RC] ASDIRECTED RT Airway Intubation [RC] ASDIRECTED Nasogastric Orogastric Tube Insertion [OM.PC] Stat 12/05/19 20:50 Gastrointestinal Tube Mgmt [RC] ASDIRECTED Urinary Catheter Assessment [RC] ASDIRECTED 12/05/19 20:51 EKG Documentation Completion [RC] STAT 12/05/19 21:00 Insert Urinary Catheter [OM.PC] Q24H 12/05/19 21:21 RASS Sedation Scale [RC] ASDIRECTED Desired Level of Sedation (RASS) [AST] Click to Edit 12/05/19 21:30 propofoL [Diprivan 100 ML] 100 ml IV TITRATE 12/05/19 22:15 Midazolam [Versed 5 MG/ML] 50 mg Sodium Chloride 0.9% [Normal Saline] 40 ml IV TITRATE
[2019-12-05] MEDS ORDERED: [UNRECOGNIZED DRUG - OTHER] OGTUBE STA (21:17)
[2019-12-05] MEDS ORDERED: propofoL 100 ML IV SCH (21:30)
[2019-12-05] MEDS ORDERED: Activated Charcoal/Sorbitol Susp 50 GM/240 ML Tube ONE (21:32)
[2019-12-05 21:42] LABS: ACETAMINOPHEN <2.0 ug/mL; BLOOD UREA NITROGEN,BUN 12 mg/dL (7.0-18.0); CARBON DIOXIDE,CO2 24.6 mmol/L (21.0-32.0); CHLORIDE,CL 103 mmol/L (98-107); GLUCOSE RANDOM 167 mg/dL (74-106); POTASSIUM,K 3.9 mmol/L (3.5-5.1); SODIUM,NA 140 mmol/L (136-148)
[2019-12-05] MEDS ORDERED: Midazolam 1 MG/ML 2 ML SDV ONE ×2 (21:52→22:02)
[2019-12-05] MEDS ORDERED: Morphine 4 MG/ML Syringe ONE (21:52)
--- NOTE | 2019-12-05 21:52 | CR ---
Indication: Post intubation Technique: Portable supine AP view of the chest Comparison: None Findings/Impression: 1. Endotracheal tube tip approximately 5.6 cm above the karlos. 2. Suboptimal inspiration. The lungs are aerated. The cardiomediastinal silhouette is unremarkable. 3. No sizable pleural effusion or pneumothorax, within limitations of noncontrast technique. 4. The osseous structures are unremarkable. Defibrillator pad projects over the right chest. Dictated by Jose Posey MD @ Dec 05 2019 9:48PM Signed by Dr. Jose Posey @ Dec 05 2019 9:50PM
[2019-12-05] MEDS ORDERED: Morphine 2 MG/ML SYRINGE IVPUSH ONE (21:54)
--- NOTE | 2019-12-05 21:54 | CR ---
Indication: Gastric tube placement Technique: Portable supine AP view of the abdomen. Comparison: None Findings/Impression: 1. Distal end of the gastric tube projects in the left upper quadrant, with tip at the expected location of the gastric antrum. 2. No abnormally distended bowel loops are demonstrated. 3. The osseous structures are unremarkable. Defibrillator pad is noted on the left. Dictated by Jose Posey MD @ Dec 05 2019 9:50PM Signed by Dr. Jose Posey @ Dec 05 2019 9:52PM
--- NOTE | 2019-12-05 22:09 | PCM.PRNOTE ---
- Free Text/Narrative Note: Anes Note I was called to [facility] to assist with sedation on thispatient who is on a ventilator. At 2154 50 mg rocuronium was administered IV. At 2199 4 mg versed was administered IV. Tolerated well. VS stable. Erwin Lee ELECTROLYSIS OPERATOR Time with patient [id number]
[2019-12-05] MEDS ORDERED: Midazolam 50 MG in Sodium Chloride 0.9% 40 ML IV SCH ×2 (22:15)
[2019-12-05 22:41] VITALS: BP 117/74; PULSE 73
== END 2019-12-05 23:00 | disposition other institution (70) ==
LOC: MW.ED 20:43
DX: T43.012A Poisoning by tricyclic antidepressants, intentional self-harm, initial encounter (principal); T43.592A Poisoning by other antipsychotics and neuroleptics, intentional self-harm, initial encounter; F41.9 Anxiety disorder, unspecified; Z79.899 Other long term (current) drug therapy; Z20.828 Contact with and (suspected) exposure to other viral communicable diseases
CPT/HCPCS: 31500; 36415; 43752; 51702; 71045; 74018; 80053; 80305; 80307; 81001; 83735; 84443; 85025; 87635; 93005; 96374; 96376; 99291; 99292; J0330; J2250; J2270; J3490; 93010; 96375; U0002

== ENCOUNTER 2021-01-18 16:35 | Emergency (ER) | payer BC ==
[2021-01-18 17:04] VITALS: BP 147/110; PULSE 91
--- NOTE | 2021-01-18 17:16 | EDM.PDOC ---
<Joe Buchanan - Last Filed: 01/18/21 18:41> ED HPI GENERAL MEDICAL PROBLEM - General Chief Complaint: General Stated Complaint: INVOLUNTARY COMMITTAL Time Seen by Provider: 01/18/21 16:44 Source of Information: Reports: Patient History Limitations: Reports: No Limitations - History of Present Illness INITIAL COMMENTS - FREE TEXT/NARRATIVE: Patient is a 30-year-old male to female transgender who presents today on police hold. Patient made some canisters parents about wanting to harm another coworker. He states that he would not initiate any aggression towards coworker but the coworker brings a knife to work and is afraid he may harm himself he brings his gun to work. Patient has made comments in the past that he want to harm himself or harm others that would do well to him but does not have any suicidal homicidal ideations at the moment. - Related Data Allergies Allergy/AdvReac Type Severity Reaction Status Date / Time No Known Allergies Allergy Verified 01/18/21 16:57 Home Meds: Home Meds DULoxetine [Cymbalta] 30 mg PO DAILY 09/28/18 [History] Estradiol Valerate 1 dose PO DAILY 01/18/21 [History] Progesterone, Micronized [Progesterone] 1 dose PO DAILY 01/18/21 [History] Past Medical History - Past Health History Medical/Surgical History: Denies Medical/Surgical History Social & Family History - Family History Family Medical History: No Pertinent Family History - Caffeine Use Caffeine Use: Reports: None ED ROS GENERAL - Review of Systems Review Of Systems: See Below Constitutional: Reports: No Symptoms HEENT: Reports: No Symptoms Respiratory: Reports: No Symptoms Cardiovascular: Reports: No Symptoms Endocrine: Reports: No Symptoms GI/Abdominal: Reports: No Symptoms : Reports: No Symptoms Musculoskeletal: Reports: No Symptoms Skin: Reports: No Symptoms Neurological: Reports: No Symptoms Psychiatric: Reports: Homicidal Ideation, Suicidal Ideation Hematologic/Lymphatic: Reports: No Symptoms Immunologic: Reports: No Symptoms ED EXAM, GENERAL - Physical Exam Exam: See Below Exam Limited By: No Limitations General Appearance: Alert, WD/WN, No Apparent Distress Eye Exam: Bilateral Eye: EOMI Throat/Mouth: Normal Inspection Respiratory/Chest: No Respiratory Distress, Lungs Clear, Normal Breath Sounds Cardiovascular: Normal Peripheral Pulses, Regular Rate, Rhythm GI/Abdominal: Normal Bowel Sounds Extremities: Normal Inspection, Normal Range of Motion Neurological: Alert, Oriented, Normal Cognition, Normal Gait Psychiatric: Normal Affect, Normal Mood Course - Re-Assessments/Exams Free Text/Narrative Re-Assessment/Exam: 01/18/21 18:41 We are still waiting for urine in the interim we [facility] and [facility] did not have any psych beds available [facility] a bed available but they need a urine toxicology screen which were still waiting for. Once back will call for transfer. Departure - Departure Time of Disposition: 18:41 Disposition: DC/Tfer to Psych Hosp/Unit [facility] Condition: Good Clinical Impression: Homicidal ideation - Discharge Information Instructions: Managing Bipolar Disorder Referrals: PCP,None [Primary Care Provider] - Forms: ED Department Discharge Additional Instructions: Your seen and evaluated in the ER today secondary to concerns about homicidal/suicidal ideation. 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 Unfortunately we are unable to accommodate the court hold within the state of [place] at this time given that there is no availability for any mental health beds and [facility], [facility], [facility]. Please continue to monitor the patient and return to the ER tomorrow so that we can try once again disease with any availability and any of the hospitals. The following information is given to patients seen in the emergency department who are being discharged to home. This information is to outline your options for follow-up care. We provide all patients seen in our emergency department with a follow-up referral. The need for follow-up, as well as the timing and circumstances, are variable depending upon the specifics of your emergency department visit. If you don't have a primary care physician on staff, we will provide you with a referral. We always advise you to contact your personal physician following an emergency department visit to inform them of the circumstance of the visit and for follow-up with them and/or the need for any referrals to a consulting specialist. The emergency department will also refer you to a specialist when appropriate. This referral assures that you have the opportunity for follow-up care with a specialist. All of these measure are taken in an effort to provide you with optimal care, which includes your follow-up. Under all circumstances we always encourage you to contact your private physician who remains a resource for coordinating your care. When calling for follow-up care, please make the office aware that this follow-up is from your recent emergency room visit. If for any reason you are refused follow-up, please contact the [facility] Emergency Department at and asked to speak to the emergency department charge nurse. [facility] - Primary Care [address] [place] [address] [facility] [address] [place] [address] Sepsis Event Note (ED) - Evaluation Sepsis Screening Result: No Definite Risk - Assessment/Plan Plan: Patient is a 30-year-old male to female brought into police custody for evaluation at the made comments to his parents about wanting to harm a coworker. Patient currently denies any suicide ideations and states that he would not harm anyone stay try to harm first. Will medically clear and have patient evaluated. <Jacobo Lockhart - Last Filed: 01/18/21 20:20> ED HPI GENERAL MEDICAL PROBLEM - History of Present Illness INITIAL COMMENTS - FREE TEXT/NARRATIVE: 8:11 PM: Signout received at [address] Buchanan pending drug screen. There has been no health beds available at [facility], [facility], [facility], [facility]. At this time, patient is still a court hold with [employer] custody. I have discussed the case with the recovery advocate's and they will not be able to transfer patient outside the state given that he is a court hold. Patient will need to be held in the assisted overnight and they will return tomorrow morning to start the process of transfer once again to a appropriate mental health facility that can accommodate her. After discussion with the 's deputy, they will take the patient back to the [facility] facility for safety and they will return tomorrow to try again to find a facility that appropriate. Course - Vital Signs Last Recorded V/S: Last Vital Signs Temp 97.4 F 01/18/21 16:59 Pulse 91 01/18/21 16:59 Resp 16 01/18/21 16:59 BP 147/110 H 01/18/21 16:59 Pulse Ox 96 01/18/21 16:59 - Orders/Labs/Meds Labs: Laboratory Tests 01/18/21 01/18/21 01/18/21 Range/Units 15:25 15:25 17:47 WBC 10.40 (4.0-11.0) K/uL RBC 4.70 (4.50-5.90) M/uL Hgb 14.2 (13.0-17.0) g/dL Hct 40.1 (38.0-50.0) % MCV 85.3 (80.0-98.0) fL MCH 30.2 (27.0-32.0) pg MCHC 35.4 (31.0-37.0) g/dL RDW Std Deviation 39.1 (28.0-62.0) fl RDW Coeff of Ariella 13 (11.0-15.0) % Plt Count 295 (150-400) K/uL MPV 10.60 (7.40-12.00) fL Neut % (Auto) 74.8 (48.0-80.0) % Lymph % (Auto) 18.0 (16.0-40.0) % [place] % (Auto) 6.4 (0.0-15.0) % Eos % (Auto) 0.6 (0.0-7.0) % Baso % (Auto) 0.2 (0.0-1.5) % Neut # (Auto) 7.8 H (1.4-5.7) K/uL Lymph # (Auto) 1.9 (0.6-2.4) K/uL [place] # (Auto) 0.7 (0.0-0.8) K/uL Eos # (Auto) 0.1 (0.0-0.7) K/uL Baso # (Auto) 0.0 (0.0-0.1) K/uL Nucleated RBC % 0.0 /100WBC Nucleated RBCs # 0 K/uL Sodium 138 (136-148) mmol/L Potassium 4.0 (3.5-5.1) mmol/L Chloride 103 (98-107) mmol/L Carbon Dioxide 25.1 (21.0-32.0) mmol/L BUN 12 (7.0-18.0) mg/dL Creatinine 1.0 (0.8-1.3) mg/dL Est Cr Clr Drug Dosing 110.51 mL/min Estimated GFR (MDRD) > 60.0 ml/min Glucose 102 (74-106) mg/dL Calcium 8.8 (8.5-10.1) mg/dL Total Bilirubin 0.3 (0.2-1.0) mg/dL AST 22 (15-37) IU/L ALT 24 (14-63) IU/L Alkaline Phosphatase 53 (46-116) U/L Total Protein 7.8 (6.4-8.2) g/dL Albumin 3.6 (3.4-5.0) g/dL Globulin 4.2 H (2.6-4.0) g/dL Albumin/Globulin Ratio 0.9 (0.9-1.6) Salicylates 0.8 (0-20) mg/dL Urine Opiates Screen (NEGATIVE) Ur Oxycodone Screen (NEGATIVE) Urine Methadone Screen (NEGATIVE) Acetaminophen <2.0 ug/mL Ur Barbiturates Screen (NEGATIVE) Ur Phencyclidine Scrn (NEGATIVE) Ur Amphetamine Screen (NEGATIVE) U Methamphetamines Scrn (NEGATIVE) U Benzodiazepines Scrn (NEGATIVE) U Cocaine Metab Screen (NEGATIVE) U Marijuana (THC) Screen (NEGATIVE) Ethyl Alcohol <3 mg/dL SARS-CoV-2 RNA (RAUL) NEGATIVE (NEGATIVE) 01/18/21 Range/Units 18:50 WBC (4.0-11.0) K/uL RBC (4.50-5.90) M/uL Hgb (13.0-17.0) g/dL Hct (38.0-50.0) % MCV (80.0-98.0) fL MCH (27.0-32.0) pg MCHC (31.0-37.0) g/dL RDW Std Deviation (28.0-62.0) fl RDW Coeff of Ariella (11.0-15.0) % Plt Count (150-400) K/uL MPV (7.40-12.00) fL Neut % (Auto) (48.0-80.0) % Lymph % (Auto) (16.0-40.0) % [place] % (Auto) (0.0-15.0) % Eos % (Auto) (0.0-7.0) % Baso % (Auto) (0.0-1.5) % Neut # (Auto) (1.4-5.7) K/uL Lymph # (Auto) (0.6-2.4) K/uL [place] # (Auto) (0.0-0.8) K/uL Eos # (Auto) (0.0-0.7) K/uL Baso # (Auto) (0.0-0.1) K/uL Nucleated RBC % /100WBC Nucleated RBCs # K/uL Sodium (136-148) mmol/L Potassium (3.5-5.1) mmol/L Chloride (98-107) mmol/L Carbon Dioxide (21.0-32.0) mmol/L BUN (7.0-18.0) mg/dL Creatinine (0.8-1.3) mg/dL Est Cr Clr Drug Dosing mL/min Estimated GFR (MDRD) ml/min Glucose (74-106) mg/dL Calcium (8.5-10.1) mg/dL Total Bilirubin (0.2-1.0) mg/dL AST (15-37) IU/L ALT (14-63) IU/L Alkaline Phosphatase (46-116) U/L Total Protein (6.4-8.2) g/dL Albumin (3.4-5.0) g/dL Globulin (2.6-4.0) g/dL Albumin/Globulin Ratio (0.9-1.6) Salicylates (0-20) mg/dL Urine Opiates Screen NEGATIVE (NEGATIVE) Ur Oxycodone Screen NEGATIVE (NEGATIVE) Urine Methadone Screen NEGATIVE (NEGATIVE) Acetaminophen ug/mL Ur Barbiturates Screen NEGATIVE (NEGATIVE) Ur Phencyclidine Scrn NEGATIVE (NEGATIVE) Ur Amphetamine Screen NEGATIVE (NEGATIVE) U Methamphetamines Scrn NEGATIVE (NEGATIVE) U Benzodiazepines Scrn NEGATIVE (NEGATIVE) U Cocaine Metab Screen NEGATIVE (NEGATIVE) U Marijuana (THC) Screen NEGATIVE (NEGATIVE) Ethyl Alcohol mg/dL SARS-CoV-2 RNA (RAUL) (NEGATIVE) Sepsis Event Note (ED) - Focused Exam Vital Signs: Vital Signs Temp Pulse Resp BP Pulse Ox 01/18/21 16:59 97.4 F 91 16 147/110 H 96
[2021-01-18 18:08] LABS: ACETAMINOPHEN <2.0 ug/mL; BLOOD UREA NITROGEN,BUN 12 mg/dL (7.0-18.0); CARBON DIOXIDE,CO2 25.1 mmol/L (21.0-32.0); CHLORIDE,CL 103 mmol/L (98-107); GLUCOSE RANDOM 102 mg/dL (74-106); SODIUM,NA 138 mmol/L (136-148)
== END 2021-01-18 20:30 ==
LOC: MW.ED 16:35
DX: R45.850 Homicidal ideations (principal); Z20.822 Contact with and (suspected) exposure to COVID-19
CPT/HCPCS: 36415; 80053; 80143; 80179; 80305-QW; 80307; 85025; 99285; U0002

== ENCOUNTER 2022-08-02 05:05 | Emergency (ER) | payer OTHER ==
[2022-08-02 06:39] LABS: A/G RATIO 0.9 (0.9-1.6); ACETAMINOPHEN <2.0 ug/mL; ALANINE AMINOTRANSFERASE,ALT 31 IU/L (14-63); ALBUMIN 3.6 g/dL (3.4-5.0); ALKALINE PHOSPHATASE 44 U/L (46-116); ASPARTATE AMNIOTRANSFERASE,AST 27 IU/L (15-37); BILIRUBIN TOTAL 0.3 mg/dL (0.2-1.0); BLOOD UREA NITROGEN,BUN 11 mg/dL (7.0-18.0); CARBON DIOXIDE,CO2 26.8 mmol/L (21.0-32.0); CHLORIDE,CL 107 mmol/L (98-107); ESTIMATED GFR 103 mL/min (>60); ETHANOL BLOOD MEDICAL < 3.0 mg/dL; GLUCOSE RANDOM 120 mg/dL (74-106); MAGNESIUM 2.1 mg/dL (1.8-2.4); POTASSIUM,K 3.5 mmol/L (3.5-5.1); PROTEIN TOTAL,TP 7.4 g/dL (6.4-8.2); SALICYLATE 0.9 mg/dL (0.0-20.0); SODIUM,NA 143 mmol/L (136-148); T3 FREE 2.58 pg/mL (2.18-3.98); T4 FREE 0.81 ng/dL (0.76-1.46); TSH ULTRASENSITIVE 1.91 uIU/mL (0.36-3.74)
[2022-08-02 07:26] LABS: BASOPHILS PERCENT AUTO 0.6 % (0.0-1.5); EOSINOPHILS ABSOLUTE AUTO 0.2 K/uL (0.0-0.7); EOSINOPHILS PERCENT AUTO 2.4 % (0.0-7.0); HEMATOCRIT 41.3 % (38.0-50.0); LYMPHOCYTES ABSOLUTE AUTO 2.5 K/uL (0.6-2.4); LYMPHOCYTES PERCENT AUTO 35.1 % (16.0-40.0); MEAN CORPUSCULAR HEMOGLOBIN 29.7 pg (27.0-32.0); MEAN CORPUSCULAR HGB CONC 33.9 g/dL (31.0-37.0); MEAN CORPUSCULAR VOLUME 87.5 fL (80.0-98.0); MONOCYTES ABSOLUTE AUTO 0.6 K/uL (0.0-0.8); NEUTROPHILS ABSOLUTE AUTO 3.7 K/uL (1.4-5.7); NEUTROPHILS PERCENT AUTO 52.9 % (48.0-80.0); NRBC ABSOLUTE 0 K/uL; PLATELET COUNT,PLT 237 K/uL (150-400); RED BLOOD CELL COUNT 4.72 M/uL (4.50-5.90); WHITE BLOOD CELL COUNT,WBC 6.99 K/uL (4.0-11.0)
[2022-08-02 07:50] LABS: APPEARANCE,URINE CLEAR; BILIRUBIN,URINE NEGATIVE (NEGATIVE); COLOR,URINE YELLOW; GLUCOSE,URINE NEGATIVE (NEGATIVE); KETONES,URINE NEGATIVE (NEGATIVE); LEUKOCYTE ESTERASE,URINE NEGATIVE (NEGATIVE); NITRITE,URINE NEGATIVE (NEGATIVE); OCCULT BLOOD,URINE TRACE-INTACT (NEGATIVE); PROTEIN,URINE NEGATIVE (NEGATIVE); UROBILINOGEN,URINE 0.2 EU/dL (<2.0)
[2022-08-02 07:57] LABS: AMPHETAMINES SCREEN, URINE NEGATIVE (CUTOFF=500); BARBITURATE SCREEN,URINE NEGATIVE (CUTOFF=200); BENZODIAZEPINES SCREEN,URINE NEGATIVE (CUTOFF=150); BUPRENORPHINE SCREEN,URINE NEGATIVE (CUTOFF=10); METHADONE SCREEN, URINE NEGATIVE (CUTOFF=200); METHAMPHETAMINES SCREEN, URINE NEGATIVE (CUTOFF=500); OXYCODONE SCREEN,URINE NEGATIVE (CUT0FF=100); PCP SCREEN,URINE NEGATIVE (CUTOFF=25); PROPOXYPHENE SCREEN,URINE NEGATIVE (CUTOFF=300); THC SCREEN,URINE 20 NG/ML NEGATIVE (CUTOFF=50)
[2022-08-02 11:30] VITALS: BP 122/71; PULSE 78
== END 2022-08-02 11:31 ==
LOC: MW.ED 05:05
DX: T14.91XA Suicide attempt, initial encounter (principal); F64.9 Gender identity disorder, unspecified; F32.A Depression, unspecified; Z20.822 Contact with and (suspected) exposure to COVID-19
CPT/HCPCS: 36415; 80053; 80143; 80179; 80305-QW; 80307; 81003; 83735; 84439; 84443; 84481; 85025; 93005; 99285; U0002